=== PATIENT | female | born 1970 | race Caucasian/White ===

== ENCOUNTER → 2024-03-03 17:46 | Outpatient (REF) | payer OTHER, SELFPAY | LOC: WDC 17:46 | PROVIDERS: ATTENDING PHYSICIAN Internal Medicine | DX: Z12.31 Encounter for screening mammogram for malignant neoplasm of breast (principal) | CPT/HCPCS: 77063; 77067 ==

== ENCOUNTER → 2025-04-07 19:06 | Outpatient (REF) | payer OTHER, SELFPAY | LOC: WDC 19:06 | PROVIDERS: ATTENDING PHYSICIAN Nurse Practitioner Family; FAMILY PHYSICIAN Internal Medicine | DX: Z12.31 Encounter for screening mammogram for malignant neoplasm of breast (principal) | CPT/HCPCS: 77063; 77067 ==